=== PATIENT | male | born 1970 | race Two or more races ===

== ENCOUNTER 2024-11-27 07:20 | Emergency (ER) | payer SELFPAY ==
[2024-11-27 07:33] VITALS: BP 184/94; PULSE 73; RESP 16; TEMP 36.7; O2SAT 98; BMI 28.3
--- NOTE | 2024-11-27 07:38 | XR_ITS ---
Examination: CT abdomen and pelvis without contrast. Coronal 3-D reconstructions. Sagittal 2-D reconstructions. Date and time of exam:November 27, 2024 0842 hours INDICATIONS: Left lower abdominal pain radiating to the back beginning today CTDI: vol (mGy): 8.89 DLP: (mGycm): 689 Technique: Axial images of the abdomen have been obtained, 3 mm slice thickness Intravenous contrast material has not been administered. Low dose protocols were performed. One or more of the following dose reduction techniques were used; automated exposure control, adjustment of the mA and/or KV according to patient size, use of iterative reconstruction technique. Findings: No focal liver or splenic lesions No gallstones identified No pancreatic or adrenal mass. No renal calculi. 3 cm anterior left renal mass, likely renal cyst Mild left hydronephrosis 5 mm distal left ureteral calculus No bowel obstruction Normal appendix No diverticulitis Intact urinary bladder IMPRESSION: Recommend renal sonography to confirm left renal cyst Mild left hydronephrosis, 5 mm distal left ureteral calculus
--- NOTE | 2024-11-27 07:39 | PD.EDRME ---
Rapid Medical Screening Exam RME Arrival date/time: 11/27/24 07:20 54-year-old male presents to the Emergency Department for complaint of left flank pain left-sided abdominal pain Chief Complaint: Abdominal Pain Time Seen by Provider: 11/27/24 07:50 Vital signs: Vital Signs Temperature 98.1 F 11/27/24 07:33 Pulse Rate 73 11/27/24 07:33 Respiratory Rate 16 11/27/24 07:33 Blood Pressure 184/94 H 11/27/24 07:33 Pulse Oximetry (%) 98 11/27/24 07:33 Oxygen Delivery Method Room Air 11/27/24 07:33
--- NOTE | 2024-11-27 08:07 | PD.EDABDPN ---
ED Abdominal Pain RME/HPI General Chief Complaint: Abdominal Pain Stated complaint: Abdominal pain/lower back pain Time seen by provider: 11/27/24 07:50 Arrival date/time: 11/27/24 07:20 RME / HPI RME / HPI narrative: 11/27/24 07:20 54-year-old male presents to the Emergency Department for complaint of left flank pain left-sided abdominal pain DR. RAMEY MAIN ED EVALUATION: 54-year-old male with a past medical history of diabetes mellitus type 2 presents to the Emergency Department with complaint of left flank and left-sided abdominal pain. Patient reports associated nausea and vomiting. He denies dysuria, hematuria, or history of kidney stones. No fever or chills reported. Patient is accompanied by his . Related Data Previous Rx's ?Medication ?Instructions ?Recorded hydrocodone 5 mg-acetaminophen 325 1 tab PO BID PRN pain #8 tabs 08/10/ mg tablet ketorolac 10 mg tablet 10 mg PO Q8H PRN pain #20 tabs 11/27/24 ondansetron 8 mg disintegrating 8 mg PO Q8H PRN nausea and 11/27/24 tablet vomiting #10 tabs prochlorperazine maleate 10 mg 10 mg PO Q8H PRN nausea and 11/27/24 tablet (Compazine) vomiting #20 tabs tamsulosin 0.4 mg capsule (Flomax) 0.4 mg PO QDAY #10 caps 11/27/24 tramadol 100 mg tablet 100 mg PO Q8H PRN pain #10 tabs 11/27/24 Allergies Allergy/AdvReac Type Severity Reaction Status Date / Time aspirin Allergy Verified 11/27/24 07:24 Review of Systems Review of Systems Systems Reviewed: All systems reviewed, normal except as documented Past Medical History Past Medical History ENDOCRINE: Positive Diabetes Mellitus Type 2 Social History SMOKING STATUS: Former smoker SUBSTANCE USE: does not use ALCOHOL: Never ED Exam Narrative Physical exam: Constitutional: Awake, alert, nontoxic, diaphoretic, looks uncomfortable HEENT: NC, AT, EOMI Neck: Supple CV: RRR, no m/r/g Lungs: CTAB, no w/r/r, no respiratory distress. Abd: Left CVA tenderness, left-sided abdomen tenderness, and mild right-sided abdomen tenderness; slight rebound tenderness; no HSM noted to palpation Extremities: No deformities, no edema noted Neuro: AAOx3, CN 2-12 GIBL, no acute neuro deficit noted. Skin: Warm, dry, intact Course Course Course Narrative: 0950h: Patient with vast improvement in symptoms. Resting comfortably in bed, no acute distress. Vitally stable with near normalization of blood pressure now from arrival. CT is showing mild hydronephrosis with distal left ureteral lithiasis 5 mm stone. Still possible that patient may be able to pass the stone on his own, so we will plan on prescriptions for home at this time with recommendation for outpatient follow-up with urology. Quality Measures none Orders Category Date Time Status Insert IV NOW Care 11/27/24 07:[address] abdomen pelvis wo con Stat Exams 11/27/24 07:38 Completed A1C [Glycohemoglobin w (eAG)] Stat Lab 11/27/24 07:57 Received CBC Stat Lab 11/27/24 07:57 Completed Comprehensive Metabolic Panel Stat Lab 11/27/24 07:57 Completed Drug Screen,Urine Stat Lab 11/27/24 07:39 Ordered Lipase Stat Lab 11/27/24 07:57 Completed UA, C/S IF [Urinalysis, C/S if Indicated] Stat Lab 11/27/24 07:38 Ordered Acetaminophen Ivpb [Ofirmev Inj] Med 11/27/24 08:01 Discontinued 1,000 mg in 100 ml IV NOW Ketorolac Inj [Toradol Inj] Med 11/27/24 08:01 Discontinued 30 mg IVP X1 ONE Morphine Inj Med 11/27/24 08:01 Discontinued 4 mg IVP X1 ONE Ondansetron Inj [Zofran Inj] Med 11/27/24 08:01 Discontinued 4 mg IVP X1 ONE Vital Signs Vital signs: Vital Signs Temperature 98.1 F 11/27/24 07:33 Pulse Rate 73 11/27/24 07:33 Respiratory Rate 16 11/27/24 07:33 Blood Pressure 184/94 H 11/27/24 07:33 Pulse Oximetry (%) 98 11/27/24 07:33 Oxygen Delivery Method Room Air 11/27/24 07:33 Abdominal Pain MDM MDM Narrative MDM Narrative:: I, Genesis Herrera, am scribing for and in the presence of Dr. Ramey. Patient data External records reviewed:: [facility] previous records Clinical information provided by:: patient Social determinants that could affect healthcare access:: none Patient has the following chronic illnesses:: diabetes mellitus type 2 How is presenting disease/condition affected by chronic disease/condition?: uneffected by Evaluation data The following diagnostics were reviewed and interpreted by me:: lab results and radiology exam(s) Lab and/or radiology exams considered but not ordered:: none Interpretation Summary: Procedure(s): CT abdomen pelvis wo con Accession Number(s): [id number] cc: Erma (CHARLOTTE),Senthil PORTER; Redd Field MD; NO PRIMARY/FAMILY,PHYSICIAN~ Examination: CT abdomen and pelvis without contrast. Coronal 3-D reconstructions. Sagittal 2-D reconstructions. Date and time of exam:November 27, 2024 0842 hours INDICATIONS: Left lower abdominal pain radiating to the back beginning today CTDI: vol (mGy): 8.89 DLP: (mGycm): 689 Technique: Axial images of the abdomen have been obtained, 3 mm slice thickness Intravenous contrast material has not been administered. Low dose protocols were performed. One or more of the following dose reduction techniques were used; automated exposure control, adjustment of the mA and/or KV according to patient size, use of iterative reconstruction technique. Findings: No focal liver or splenic lesions No gallstones identified No pancreatic or adrenal mass. No renal calculi. 3 cm anterior left renal mass, likely renal cyst Mild left hydronephrosis 5 mm distal left ureteral calculus No bowel obstruction Normal appendix No diverticulitis Intact urinary bladder IMPRESSION: Recommend renal sonography to confirm left renal cyst Mild left hydronephrosis, 5 mm distal left ureteral calculus Dictated By: Redd Field MD Medications / Prescriptions Medications or Prescriptions considered but not ordered:: none Medication administrations:: Medication Administration History Discontinued Medications Acetaminophen (Ofirmev Inj) 1,000 mg in 100 mls @ 250 mls/hr IV NOW ONE Stop: 11/27/24 08:24 Last Infusion: 11/27/24 09:11 Dose: Infused Documented By: Admin: 11/27/24 08:20 Dose: 250 mls/hr Documented By: JAYSON Ketorolac Tromethamine (Ketorolac Inj 30 Mg/Ml Vial) 30 mg IVP X1 ONE Stop: 11/27/24 08:02 Last Admin: 11/27/24 08:19 Dose: 30 mg Documented By: JAYSON Morphine Sulfate (Morphine Sulf Inj 10 Mg/Ml Vial) 4 mg IVP X1 ONE Stop: 11/27/24 08:02 Last Admin: 11/27/24 08:18 Dose: 4 mg Documented By: JAYSON Ondansetron HCl (Ondansetron Inj 2 Mg/Ml Inj 2 Ml) 4 mg IVP X1 ONE; Protocol Stop: 11/27/24 08:02 Last Admin: 11/27/24 08:19 Dose: 4 mg Documented By: JAYSON see above Consultations Consultation(s) initiated? (list below): No Diagnosis Differential diagnosis abdominal pain: other (nephrolithiasis, pyelonephritis, diverticulitis) Most likely diagnosis given after review of the tests above:: Ureterolithiasis Admission Indicated Admission indicated?: not indicated Admission Request Was there a request for admission?: No Disposition Plan Disposition Plan: Discharge Discharge Attestation Discharge Attestation: The patient and all family members were given an opportunity to ask questions and understood the discharge instructions. Discharge instructions specifically effects, indications for sooner follow up or return to the emergency department, and the expected course of current diagnosis. Patient condition: Stable Discharge Plan Plan Patient Disposition: HOME (Self Care) Patient condition on transfer: Stable Prescriptions/Referrals Prescriptions/Med Rec: New ketorolac 10 mg tablet 10 mg PO Q8H PRN (Reason: pain) Qty: 20 0RF Rx Instructions: maximum total duration of 5 days from all oral, intranasal, or parenteral formulations tamsulosin [Flomax] 0.4 mg capsule 0.4 mg PO QDAY Qty: 10 0RF prochlorperazine maleate [Compazine] 10 mg tablet 10 mg PO Q8H PRN (Reason: nausea and vomiting) Qty: 20 0RF ondansetron 8 mg tablet,disintegrating 8 mg PO Q8H PRN (Reason: nausea and vomiting) Qty: 10 0RF tramadol 100 mg tablet 100 mg PO Q8H PRN (Reason: pain) Qty: 10 0RF No Action hydrocodone-acetaminophen 5-325 mg tablet 1 tab PO BID MDD 2 PRN (Reason: pain) Qty: 8 0RF Referrals: Jagdeep Arguello MD [Physician] - In 1 week No Primary/Family,Physician [Primary Care Provider] - In 1 week Problem List Clinical Impression: Ureterolithiasis Patient/Caregiver Discharge Instructions Education Materials: ED Kidney Stone w/ Colic Print Language: Congolese Stand Alone Forms: Peggy Award Info., Patient Portal Info Letter
[2024-11-27 08:14] LABS: Basophils # (Auto) 0.0 Thou/mm3 (0.0-0.2); Basophils % (Auto) 0 % (0-2.5); Eosinophils # (Auto) 0.1 Thou/mm3 (0.0-0.5); Eosinophils % (Auto) 1 % (0-10); Hematocrit 47.3 % (41.0-53.0); Hemoglobin 16.3 g/dL (13.5-16.0); Immature Granulocytes Auto 0.02 Thou/mm3 (0.00-0.00); Lymphocytes # (Auto) 1.2 Thou/mm3 (1.0-4.8); Lymphocytes % (Auto) 13 % (10-50); Mean Corpuscular HGB Conc 34.5 g/dl (31.0-37.0); Mean Corpuscular Hemoglobin 31.0 pg (25.0-35.0); Mean Corpuscular Volume 90 fL (80-100); Monocytes # (Auto) 0.5 Thou/mm3 (0.0-0.8); Monocytes % (Auto) 5 % (0-12); Neutrophils # (Auto) 7.6 Thou/mm3 (1.8-7.7); Neutrophils % (Auto) 81 % (37-80); Nucleated Red Blood Cell # 0.00 Thou/mm3 (0.00-0.00); Nucleated Red Blood Cell % 0 /100 WBC (0); Platelet Count 165 Thou/mm3 (140-440); RDW Standard Deviation 40.4 fL (35.1-43.9); Red Blood Count 5.25 Miln/mm3 (4.50-5.90); White Blood Count 9.4 Thou/mm3 (3.8-10.6)
[2024-11-27] MEDS: MORPHINE SULF INJ 10 MG/ML VIAL 4 MG IVP (08:18)
[2024-11-27] MEDS: ONDANSETRON INJ 2 MG/ML INJ 2 ML 4 MG IVP (08:19)
[2024-11-27] MEDS: KETOROLAC INJ 30 MG/ML VIAL IVP (08:19)
[2024-11-27] MEDS: ACETAMINOPHEN IVPB 1,000 MG/100 ML VIAL 250 MG IV (08:20)
[2024-11-27 08:24] LABS: Alanine Aminotransferase 22 U/L (10-49); Albumin, Serum 5.3 gm/dL (3.5-5.0); Albumin/Globulin Ratio 2.0 (1.2-2.2); Alkaline Phosphatase 77 U/L (46-116); Anion Gap 10 (7-16); Aspartate Amino Transferase 28 U/L (0-34); BUN/Creatinine Ratio 10 Ratio (12-20); Bilirubin,Total 0.7 mg/dL (0.3-1.2); Blood Urea Nitrogen 12 mg/dL (9-23); Calcium 10.5 mg/dL (8.3-10.6); Calcium (Corrected) 10.5 mg/dL (8.5-10.1); Carbon Dioxide 20.7 mMol/L (20.0-31.0); Chloride 106 mMol/L (98-107); Creatinine (Component) 1.2 mg/dL (0.6-1.3); Estimated Creatinine Clearance 88.0 mL/min (>60); Globulin 2.6 gm/dL (2.3-3.5); Glucose 385 mg/dL (74-106); Lipase 26 U/L (12-53); Osmolality,Calculated 289 (275-295); Potassium 4.9 mMol/L (3.4-5.1); Sodium 137 mMol/L (136-145); Total Protein 7.9 gm/dL (5.7-8.2); eGFR > 60 See Note
[2024-11-27 11:55] VITALS: BP 166/96; PULSE 81; RESP 19; TEMP 36.6; O2SAT 98
[2024-11-27 16:42] LABS: Glucose Estimated Average 229 mg/dL (80-131); Hemoglobin A1C 9.6 % Hgb (4.8-6.0)
== END 2024-11-27 11:57 | disposition home or self-care (01) ==
PROVIDERS: Nurse Practitioner Primary Care; Emergency Provider Family Medicine
DX: N13.2 Hydronephrosis with renal and ureteral calculous obstruction (principal)
CPT/HCPCS: 36415; 74176; 80053; 80307; 81001; 83036; 83690; 85025; 96365; 96375; 99283; J0131; J1885; J2270; J2405